=== PATIENT | female | born 1955 | race African-American/Black ===

== ENCOUNTER 2018-07-20 08:44 | Emergency (ER) | payer MEDICARE ==
[~2018-07-20] VITALS: Ht 152.4 cm; Wt 87.7 kg
[~2018-07-20 08:44] MED LIST: AMLO-511 PO; ASPI-556 PO; ATOR40TA28 PO; AUD NEB; CARV25 PO; CLOP75TA32 PO; FERR-89 PO; IPRNEB IH; LORA10TA7 PO; LOSA50TA64 PO; NITR.4 SL; PANT40TA25 PO; PRED10TA3 PO; PRED20TA3 PO; RANO500T3 PO; TRAM50TA4 PO; TYL3 PO; VITAD1000 PO; ZOLP5 PO; [UNRECOGNIZED DRUG - CODE] TD
[2018-07-20 09:44] LABS: BASOPHILS % (AUTO) 0.9 % (0.0-2.0); HEMATOCRIT 38.2 % (36-46); HEMOGLOBIN 12.6 g/dL (12.0-16.0); LYMPHOCYTES # (AUTO) 1.1 K/uL (1.0-4.8); MEAN CORPUSCULAR VOLUME 94 fL (80-100); MONOCYTES # (AUTO) 0.5 K/uL (0.1-1.0); MONOCYTES % (AUTO) 7.7 % (2.0-9.0); NEUTROPHILS # (AUTO) 3.9 K/uL (1.8-7.7); NEUTROPHILS % (AUTO) 66.4 % (40.0-70.0); PLATELET COUNT (AUTO) 271 K/uL (150-450); RED BLOOD CELL COUNT(AUTO) 4.07 MIL/uL (4.00-5.20); RED CELL DISTRIBUTION WIDTH 15.4 % (11.5-14.5)
[2018-07-20 09:52] LABS: CALCIUM, TOTAL 9.6 mg/dL (8.8-10.5); CREATININE 1.15 mg/dL (0.60-1.30); POTASSIUM 4.3 mmol/L (3.5-5.1)
[2018-07-20 09:59] LABS: ALBUMIN 3.1 g/dL (3.4-5.0); BILIRUBIN,TOTAL 0.4 mg/dL (0.1-1.0); TOTAL PROTEIN, SERUM 7.2 g/dL (6.4-8.2)
[2018-07-20] MEDS ORDERED: KETOROLAC TROMETHAMINE 60 MG/2 ML VIAL IM ONE (13:00)
[2018-07-20] MEDS ORDERED: CYCLOBENZAPRINE HCL 10 MG TABLET PO ONE (13:00)
[2018-07-20 15:29] VITALS: BP 148/79
== END 2018-07-20 15:34 | disposition home or self-care (01) ==
LOC: EMS 08:45
DX: G89.29 Other chronic pain (principal); M54.5 Low back pain; R05 Cough; M54.2 Cervicalgia; E66.9 Obesity, unspecified; Z68.37 Body mass index [BMI] 37.0-37.9, adult; I25.10 Atherosclerotic heart disease of native coronary artery without angina pectoris; E78.00 Pure hypercholesterolemia, unspecified; I10 Essential (primary) hypertension; Z87.891 Personal history of nicotine dependence; Z86.73 Personal history of transient ischemic attack (TIA), and cerebral infarction without residual deficits; Z88.0 Allergy status to penicillin; Z88.2 Allergy status to sulfonamides; Z91.040 Latex allergy status; Z79.82 Long term (current) use of aspirin
CPT/HCPCS: 36415; 71045; 80053; 84484; 85025; 93005; 96372; 99284; J1885

== ENCOUNTER 2019-02-02 06:54 | Emergency (ER) | payer MEDICARE ==
[~2019-02-02] VITALS: Ht 121.9 cm; Wt 90.0 kg
[~2019-02-02 06:54] MED LIST changes: -AMLO-511 PO; -LORA10TA7 PO; -NITR.4 SL; +NITR0.4T52 SL; +NITR1PAT72 TD; -PRED10TA3 PO; -PRED20TA3 PO; -RANO500T3 PO; -[UNRECOGNIZED DRUG - CODE] TD
[2019-02-02] MEDS ORDERED: BUDE10.2 IH (07:14)
[2019-02-02] MEDS ORDERED: MONT10TA21 PO (07:14)
[2019-02-02 07:19] VITALS: BP 136/74
[2019-02-02] MEDS ORDERED: KETOROLAC TROMETHAMINE 30 MG/ML VIAL IM ONE (07:45)
[2019-02-02] MEDS ORDERED: FAMOTIDINE 20 MG TABLET PO ONE (07:45)
== END 2019-02-02 07:50 | disposition home or self-care (01) ==
LOC: EMS 06:54
DX: L50.0 Allergic urticaria (principal); M25.511 Pain in right shoulder; I25.10 Atherosclerotic heart disease of native coronary artery without angina pectoris; I10 Essential (primary) hypertension; E70.0 Classical phenylketonuria; Z87.891 Personal history of nicotine dependence; Z79.82 Long term (current) use of aspirin; Z88.0 Allergy status to penicillin; Z88.1 Allergy status to other antibiotic agents; Z91.040 Latex allergy status
CPT/HCPCS: 96372; 99283; J1885

== ENCOUNTER → 2019-05-25 | Outpatient (CLI) | payer MEDICARE ==
[~2019-05-25] MED LIST changes: -AUD NEB; +BUDE10.2 IH; +CHOL100018 PO; -IPRNEB IH; +MONT10TA21 PO; -PANT40TA25 PO; -TRAM50TA4 PO; -TYL3 PO; -VITAD1000 PO; -ZOLP5 PO
== END | disposition home or self-care (01) ==
LOC: PUC 14:20
DX: I51.7 Cardiomegaly (principal); R05 Cough

== ENCOUNTER 2019-11-09 07:08 | Emergency (ER) | payer MEDICARE ==
[~2019-11-09] VITALS: Ht 149.9 cm; Wt 100.0 kg
[~2019-11-09 07:08] MED LIST changes: +LOSA50TA37 PO; -LOSA50TA64 PO
[2019-11-09] MEDS ORDERED: CHOL125C2 PO (07:17)
[2019-11-09] MEDS ORDERED: AMLO5TAB9 PO (07:17)
[2019-11-09] MEDS ORDERED: CARV25 PO (07:17)
[2019-11-09] MEDS ORDERED: HYDR25TA84 PO (07:17)
[2019-11-09] MEDS ORDERED: ALBU8HFA IH (07:17)
[2019-11-09] MEDS ORDERED: MORPHINE SULFATE 4 MG/ML SYRINGE IVP ONE (07:45)
[2019-11-09] MEDS ORDERED: ONDANSETRON HCL 4 MG/2 ML VIAL IVP ONE (07:45)
[2019-11-09] MEDS ORDERED: ACETAMINOPHEN 1000 MG/ISO-OSM 100 ML IV ONE (07:45)
[2019-11-09 08:34] LABS: EOSINOPHILS % (AUTO) 6.8 % (1.0-6.0); HEMATOCRIT 37.2 % (36-46); HEMOGLOBIN 12.4 g/dL (12.0-16.0); LYMPHOCYTES # (AUTO) 1.1 K/uL (1.0-4.8); LYMPHOCYTES % (AUTO) 17.5 % (22.0-44.0); MEAN CORPUSCULAR HEMOGLOBIN 31.4 pg (26.0-34.0); MEAN CORPUSCULAR HGB CONC 33.4 G/dL (31.0-37.0); MEAN CORPUSCULAR VOLUME 94 fL (80-100); MONOCYTES # (AUTO) 0.7 K/uL (0.1-1.0); NEUTROPHILS # (AUTO) 3.9 K/uL (1.8-7.7); NEUTROPHILS % (AUTO) 63.7 % (40.0-70.0); PLATELET COUNT (AUTO) 259 K/uL (150-450); RED BLOOD CELL COUNT(AUTO) 3.96 MIL/uL (4.00-5.20)
[2019-11-09 08:41] LABS: CALCIUM, TOTAL 9.3 mg/dL (8.8-10.5); CREATININE 1.14 mg/dL (0.60-1.30); POTASSIUM 4.1 mmol/L (3.5-5.1)
[2019-11-09 08:46] LABS: PROTHROMBIN TIME 10.2 SEC (9.4-11.6)
[2019-11-09 09:06] LABS: ALBUMIN 3.3 g/dL (3.4-5.0); BILIRUBIN,TOTAL 0.6 mg/dL (0.1-1.0); TOTAL PROTEIN, SERUM 7.6 g/dL (6.4-8.2)
[2019-11-09 09:40] VITALS: BP 126/69
== END 2019-11-09 10:40 | disposition home or self-care (01) ==
LOC: EMS 07:08
DX: I10 Essential (primary) hypertension (principal); R51 Headache; R05 Cough; J45.909 Unspecified asthma, uncomplicated; I25.10 Atherosclerotic heart disease of native coronary artery without angina pectoris; E78.00 Pure hypercholesterolemia, unspecified; Z20.828 Contact with and (suspected) exposure to other viral communicable diseases; Z87.891 Personal history of nicotine dependence; Z88.0 Allergy status to penicillin; Z88.1 Allergy status to other antibiotic agents; Z91.040 Latex allergy status; Z79.82 Long term (current) use of aspirin
CPT/HCPCS: 36415; 70450; 71045; 80053; 82550; 83880; 84484; 85025; 85610; 85730; 93005; 96365; 96375; 99285; J0131; J2270; J2405; U0003; 96374